=== PATIENT | female | born 1985 | race African-American/Black ===

== ENCOUNTER 2021-02-17 10:12 | Emergency (ER) | payer OTHER ==
[~2021-02-17] VITALS: Ht 165.1 cm; Wt 81.8 kg
[~2021-02-17 10:12] MED LIST: PREN1TAB26 PO
[2021-02-17 10:23] VITALS: BP 137/99
== END 2021-02-17 11:47 | disposition home or self-care (01) ==
LOC: EMS 10:21
DX: H00.011 Hordeolum externum right upper eyelid (principal); H01.001 Unspecified blepharitis right upper eyelid; F17.210 Nicotine dependence, cigarettes, uncomplicated
CPT/HCPCS: 99283; Z7502

== ENCOUNTER 2021-06-03 13:55 | Emergency (ER) | payer OTHER ==
[~2021-06-03] VITALS: Ht 165.1 cm; Wt 81.8 kg
[2021-06-03 14:00] VITALS: BP 132/87
[2021-06-03] MEDS ORDERED: PERTUSS(ACELL),DIPH,TET VAC/PF 0.5 ML SYRINGE IM. ONE (14:45)
== END 2021-06-03 15:04 | disposition home or self-care (01) ==
LOC: EMS 13:57
DX: S61.412A Laceration without foreign body of left hand, initial encounter (principal); W26.0XXA Contact with knife, initial encounter; Y93.89 Activity, other specified; Y92.89 Other specified places as the place of occurrence of the external cause; Y99.0 Civilian activity done for income or pay
CPT/HCPCS: 12001; 90471; 90715; 99283

== ENCOUNTER 2023-02-11 12:48 | Emergency (ER) | payer OTHER ==
[~2023-02-11] VITALS: Ht 165.1 cm; Wt 86.4 kg
[2023-02-11] MEDS ORDERED: PENI500T2 PO (14:29)
[2023-02-11] MEDS ORDERED: ACET-2080 PO (14:29)
[2023-02-11 14:44] VITALS: BP 139/70
== END 2023-02-11 14:48 | disposition home or self-care (01) ==
LOC: EMS 12:51
DX: F17.210 Nicotine dependence, cigarettes, uncomplicated (principal); K02.9 Dental caries, unspecified
CPT/HCPCS: 99283

== ENCOUNTER 2023-04-03 16:14 | Emergency (ER) | payer OTHER ==
[~2023-04-03] VITALS: Ht 165.1 cm; Wt 70.5 kg
[~2023-04-03 16:14] MED LIST changes: +ACET-2080 PO; +PENI500T2 PO; -PREN1TAB26 PO
[2023-04-03] MEDS ORDERED: ASPI-1450 PO (16:22)
[2023-04-03 16:45] VITALS: BP 136/90
[2023-04-03] MEDS ORDERED: POLYOS OS (17:16)
== END 2023-04-03 17:22 | disposition home or self-care (01) ==
LOC: EMS 16:24
DX: H10.9 Unspecified conjunctivitis (principal); F17.210 Nicotine dependence, cigarettes, uncomplicated
CPT/HCPCS: 99281; Z7502